=== PATIENT | male | born 1985 | race Caucasian/White ===

== ENCOUNTER 2017-06-01 11:32 | Observation (INO) | payer BC ==
[~2017-06-01] VITALS: Ht 185.4 cm; Wt 65.9 kg
[2017-06-01] VITALS (9 sets, daily range): BP systolic 111–131; BP diastolic 61–75; PULSE 80–88; TEMP 98.2–98.7
[~2017-06-01 11:32] MED LIST: NO HOME MEDICATIONS
[2017-06-01] MEDS ORDERED: NORCO 325 MG-51 TAB PO (14:55)
[2017-06-01] MEDS ORDERED: MOTRIN 600600 MG/TAB PO (14:56)
[2017-06-01] MEDS ORDERED: COLACE 100100 MG/CAP PO (14:56)
== END 2017-06-01 21:00 | disposition home or self-care (01) ==
LOC: COL.ER 11:32 → SURG 13:49 → EDBEDREQ 13:51 → SURG 21:00
DX: K35.80 Unspecified acute appendicitis (principal)
CPT/HCPCS: J1100; J1885; J2270; J2405; J2543; J2550; J2704; J2710; J3010; J7050; J7120; Q9967